=== PATIENT | male | born 1990 | race Asian ===

== ENCOUNTER 2020-08-16 19:48 | Emergency (ER) | payer SELFPAY ==
[~2020-08-16] VITALS: Ht 172.7 cm; Wt 81.6 kg
[2020-08-16 19:50] VITALS: BP 154/92; Ht 172.7 cm; Wt 81.6 kg
== END 2020-08-16 20:37 | disposition home or self-care (01) ==
LOC: ED 19:48
DX: U07.1 COVID-19 (principal)
CPT/HCPCS: U0003